=== PATIENT | female | born 1955 | race Hispanic/Latino ===

== ENCOUNTER 2020-09-07 15:04 | Emergency (ER) | payer SELFPAY ==
[2020-09-07] MEDS ORDERED: NA CHLORIDE 0.9% 1,000 ML ONE (15:55)
[2020-09-07] MEDS ORDERED: KETOROLAC 30 MG/ML INJ ONE (15:55)
[2020-09-07] MEDS ORDERED: MORPHINE 4 MG/ML SYR ONE (15:55)
[2020-09-07] MEDS ORDERED: ONDANSETRON 4 MG/2 ML VIAL ONE (15:55)
--- NOTE | 2020-09-07 16:01 | ER ---
Nurse's Notes [facility] Name: Sydney Melendez Age: 65 yrs Sex: Female : 1955 Arrival Date: 09/07/2020 Time: 15:05 Bed 15 Private MD: Diagnosis: Fall due to bumping against object;Nondisplaced transverse fracture of shaft of right radius Presentation: 09/07 15:08 Acuity: NORIS 3 zb 15:08 Chief complaint: EMS states: fall from home. fell on right arm, injury to right wrist zb swollen, VSS. welsh speaking only. Coronavirus screen: At this time, the client does not indicate any symptoms associated with coronavirus-19. Ebola Screen: No symptoms or risks identified at this time. Initial Sepsis Screen: Does the patient meet any 2 criteria? No. Patient's initial sepsis screen is negative. Does the patient have a suspected source of infection? No. Patient's initial sepsis screen is negative. Risk Assessment: Do you want to hurt yourself or someone else? Patient reports no desire to harm self or others. Onset of symptoms was September 07, 2020. 15:08 Method Of Arrival: EMS: [facility] zb Triage Assessment: 15:27 General: Appears in no apparent distress. uncomfortable, Behavior is calm, cooperative, zb tearful . Pain: Complains of pain in right wrist Pain does not radiate. Pain currently is 9 out of 10 on a pain scale. Quality of pain is described as sharp, tender, Pain began suddenly, 1 hour ago. Is continuous, Noted to be grimacing, guarding, Also complains of inability to perform activities of daily living. EENT: Neuro: Level of Consciousness is awake, alert, obeys commands, Oriented to person, place, time, situation. Cardiovascular: Capillary refill < 3 seconds in bilateral fingers Patient's skin is warm and dry. Respiratory: Airway is patent Respiratory effort is even, unlabored, Respiratory pattern is regular, symmetrical. GI: No signs and/or symptoms were reported involving the gastrointestinal system. : No signs and/or symptoms were reported regarding the genitourinary system. Derm: Skin is intact, is healthy with good turgor, Skin is normal. Musculoskeletal: Circulation, motion, and sensation intact. Capillary refill < 3 seconds, in bilateral fingers. Range of motion: intact in all extremities, Swelling present in right wrist Reports pain in right wrist. Historical: - Allergies: 15:27 No Known Allergies; zb - PMHx: 15:27 Diabetes - NIDDM; Thyroid problem; zb - PSHx: 15:27 Hysterectomy; eye surgery; zb - Immunization history:: Adult Immunizations up to date, Flu vaccine is up to date. - Social history:: Smoking status: Patient denies any tobacco usage or history of. - Family history:: not pertinent. Screenin:30 Abuse screen: Denies threats or abuse. Denies injuries from another. Nutritional zb screening: No deficits noted. On. Tuberculosis screening: No symptoms or risk factors identified. Fall Risk Fall in past 12 months (25 points). No secondary diagnosis (0 pts). IV access (20 points). Ambulatory Aid- Crutches/Cane/Walker (15 pts). Gait- Normal/Bed Rest/Wheelchair (0 pts) Mental Status- Oriented to own ability (0 pts). Total Cerna Fall Scale indicates High Risk Score (45 or more points). Fall prevention measures have been instituted. Side Rails Up X 2 Placed Close to Nursing Station Frequent Obs/Assessments Occuring Family Present and informed to notify staff if the need to leave the bedside As available patient and family educated on Fall Prevention Program and Strategies. Assessment: 15:34 Reassessment: See triage assessment. zb 16:15 Reassessment: d/c pending splint and x-ray reviews. zb 17:03 Reassessment: Patient appears in no apparent distress at this time. Patient and/or zb family updated on plan of care and expected duration. Pain level reassessed. Patient is alert, oriented x 3, equal unlabored respirations, skin warm/dry/pink. family at bedside states. patient states the pain has decreased. Patient states feeling better. Patient states symptoms have improved. Vital Signs: 15:06 BP 158 / 68; Pulse 66; Resp 20; Temp 98.4; Pulse Ox 98% ; dh4 15:34 BP 156 / 74; Pulse 67; Resp 18; Pulse Ox 99% on R/A; zb ED Course: 15:05 Patient arrived in ED. zb 15:07 Bin Hayes MD is Attending Physician. [facility] 15:08 Anh Calderon, RN is Primary Nurse. zb 15:08 Triage completed. zb 15:30 Patient has correct armband on for positive identification. Bed in low position. Call zb light in reach. Side rails up X 1. Door closed. Warm blanket given. 15:45 Inserted saline lock: 20 gauge in left antecubital area, using aseptic technique. zb 15:57 Coy Black MD is Referral Physician. [facility] 16:11 Wrist Right 3 View XRAY In Process Unspecified. EDMS 16:34 Arm band placed on. zb 16:42 Orthoglass splint: Sugar tong splint applied on right arm. 4 17:07 IV discontinued, intact, bleeding controlled, No redness/swelling at site. Pressure zb dressing applied. 17:08 No provider procedures requiring assistance completed. zb Administered Medications: 15:56 Drug: NS 0.9% 1000 ml Route: IV; Rate: 1 bolus; Site: left antecubital; zb 16:30 Follow up: Response: No adverse reaction; IV Status: Completed infusion; IV Intake: zb 1000ml 15:57 Drug: TORadol 30 mg Route: IVP; Site: left antecubital; zb 16:18 Follow up: Response: No adverse reaction zb 15:57 Drug: Zofran (Ondansetron) 4 mg Route: IVP; Site: left antecubital; zb 16:18 Follow up: Response: No adverse reaction zb 15:57 Drug: morphine 4 mg Route: IVP; Site: left antecubital; zb 16:18 Follow up: Response: No adverse reaction; Marked relief of symptoms; RASS: Drowsy (-1) zb Intake: 16:30 IV: 1000ml; Total: 1000ml. zb Outcome: 16:01 Discharge ordered by . [facility] 17:08 Discharged to home via wheelchair, with family. zb 17:08 Condition: stable 17:08 Discharge instructions given to patient, family, Instructed on discharge instructions, follow up and referral plans. medication usage, Demonstrated understanding of instructions, follow-up care, medications, Prescriptions given X 2. 17:15 Patient left the ED. zb Signatures: Dispatcher [employer] EDAK Bin Hayes MD MD cha Huhn, Donald 4 Anh Calderon, RN RN zb
--- NOTE | 2020-09-07 16:02 | EDPHYS ---
Physician Documentation [facility] Name: Sydney Melendez Age: 65 yrs Sex: Female : 1955 Arrival Date: 09/07/2020 Time: 15:05 Bed 15 Private MD: ED Physician Bin Hayes HPI: 09/07 15:30 This 65 yrs old Female presents to ER via EMS with complaints of right wrist luisito pain after fall, deformity noted. 15:30 The patient or guardian reports decreased range of motion, pain. The complaints affect luisito the right wrist diffusely. Context: The problem was sustained at home. Onset: The symptoms/episode began/occurred just prior to arrival. Modifying factors: The symptoms are alleviated by elevation, holding still, ice/coldpack to affected area, the symptoms are aggravated by movement, dependent position. Associated signs and symptoms: Pertinent positives:. The patient has not experienced similar symptoms in the past. Historical: - Allergies: 15:27 No Known Allergies; zb - PMHx: 15:27 Diabetes - NIDDM; Thyroid problem; zb - PSHx: 15:27 Hysterectomy; eye surgery; zb - Immunization history:: Adult Immunizations up to date, Flu vaccine is up to date. - Social history:: Smoking status: Patient denies any tobacco usage or history of. - Family history:: not pertinent. ROS: 15:30 Constitutional: Negative for fever, chills, and weight loss, Eyes: Negative for injury, luisito pain, redness, and discharge, ENT: Negative for injury, pain, and discharge, Neck: Negative for injury, pain, and swelling, Cardiovascular: Negative for chest pain, palpitations, and edema, Respiratory: Negative for shortness of breath, cough, wheezing, and pleuritic chest pain, Abdomen/GI: Negative for abdominal pain, nausea, vomiting, diarrhea, and constipation, Back: Negative for injury and pain, : Negative for injury, bleeding, discharge, and swelling, Skin: Negative for injury, rash, and discoloration, Neuro: Negative for headache, weakness, numbness, tingling, and seizure, Psych: Negative for depression, anxiety, suicide ideation, homicidal ideation, and hallucinations, Allergy/Immunology: Negative for hives, rash, and allergies, Endocrine: Negative for neck swelling, polydipsia, polyuria, polyphagia, and marked weight changes, Hematologic/Lymphatic: Negative for swollen nodes, abnormal bleeding, and unusual bruising. 15:30 MS/extremity: Positive for decreased range of motion, pain, swelling, tenderness, of the right wrist. Exam: 15:30 Constitutional: This is a well developed, well nourished patient who is awake, alert, luisito and in no acute distress. Head/Face: Normocephalic, atraumatic. Eyes: Pupils equal round and reactive to light, extra-ocular motions intact. Lids and lashes normal. Conjunctiva and sclera are non-icteric and not injected. Cornea within normal limits. Periorbital areas with no swelling, redness, or edema. ENT: Nares patent. No nasal discharge, no septal abnormalities noted. Tympanic membranes are normal and external auditory canals are clear. Oropharynx with no redness, swelling, or masses, exudates, or evidence of obstruction, uvula midline. Mucous membranes moist. Neck: Trachea midline, no thyromegaly or masses palpated, and no cervical lymphadenopathy. Supple, full range of motion without nuchal rigidity, or vertebral point tenderness. No Meningismus. Chest/axilla: Normal chest wall appearance and motion. Nontender with no deformity. No lesions are appreciated. Cardiovascular: Regular rate and rhythm with a normal S1 and S2. No gallops, murmurs, or rubs. Normal PMI, no JVD. No pulse deficits. Respiratory: Lungs have equal breath sounds bilaterally, clear to auscultation and percussion. No rales, rhonchi or wheezes noted. No increased work of breathing, no retractions or nasal flaring. Abdomen/GI: Soft, non-tender, with normal bowel sounds. No distension or tympany. No guarding or rebound. No evidence of tenderness throughout. Back: No spinal tenderness. No costovertebral tenderness. Full range of motion. Female : Normal external genitalia. Skin: Warm, dry with normal turgor. Normal color with no rashes, no lesions, and no evidence of cellulitis. Neuro: Awake and alert, GCS 15, oriented to person, place, time, and situation. Cranial nerves II-XII grossly intact. Motor strength 5/5 in all extremities. Sensory grossly intact. Cerebellar exam normal. Normal gait. Psych: Awake, alert, with orientation to person, place and time. Behavior, mood, and affect are within normal limits. 15:30 Musculoskeletal/extremity: ROM: limited active range of motion, limited passive range of motion, limited active range of motion due to pain, limited passive range of motion due to pain, Circulation is intact in all extremities. Sensation intact. Compartment Syndrome exam of affected extremity: is normal. Vital Signs: 15:06 BP 158 / 68; Pulse 66; Resp 20; Temp 98.4; Pulse Ox 98% ; dh4 15:34 BP 156 / 74; Pulse 67; Resp 18; Pulse Ox 99% on R/A; zb MDM: 15:07 Patient medically screened. [facility] 15:33 Differential diagnosis: closed fracture, contusion, tendonitis. Data reviewed: vital luisito signs, nurses notes, lab test result(s), radiologic studies, plain films. Data interpreted: information systems technician: rate is 66 beats/min, rhythm is regular, Pulse oximetry: on. Test interpretation: by ED physician or midlevel provider: plain radiologic studies. Counseling: I had a detailed discussion with the patient and/or guardian regarding: the historical points, exam findings, and any diagnostic results supporting the discharge/admit diagnosis, radiology results. 09/07 15:26 Order name: Wrist Right 3 View XRAY [facility] 09/07 15:26 Order name: Ice pack; Complete Time: 15:58 [facility] 09/07 15:56 Order name: Sling; Complete Time: 16:18 [facility] 09/07 15:56 Order name: Sugar Tong Forearm Splint: well padded, not circumfrential; Complete Time: [facility] 16:42 Administered Medications: 15:56 Drug: NS 0.9% 1000 ml Route: IV; Rate: 1 bolus; Site: left antecubital; zb 16:30 Follow up: Response: No adverse reaction; IV Status: Completed infusion; IV Intake: zb 1000ml 15:57 Drug: TORadol 30 mg Route: IVP; Site: left antecubital; zb 16:18 Follow up: Response: No adverse reaction zb 15:57 Drug: Zofran (Ondansetron) 4 mg Route: IVP; Site: left antecubital; zb 16:18 Follow up: Response: No adverse reaction zb 15:57 Drug: morphine 4 mg Route: IVP; Site: left antecubital; zb 16:18 Follow up: Response: No adverse reaction; Marked relief of symptoms; RASS: Drowsy (-1) zb Disposition: 09/07/20 16:01 Discharged to Home. Impression: Fall due to bumping against object, Nondisplaced transverse fracture of shaft of right radius. - Condition is Stable. - Discharge Instructions: Wrist Fracture Treated With Immobilization, Wrist Fracture Treated With Immobilization, [id number]. - Prescriptions for Tylenol- Codeine #3 300-30 mg Oral Tablet - take 2 tablets by ORAL route every 6 hours As needed; 26 tablet. Motrin IB 200 mg Oral Tablet - take 2 tablet by ORAL route every 6 hours As needed as needed with food; 30 tablet. - Medication Reconciliation Form, Thank You Letter, Antibiotic Education, Prescription Opioid Use form. - Follow up: Coy Black MD; When: 2 - 3 days; Reason: Recheck today's complaints, Re-evaluation by your physician. - Problem is new. - Symptoms have improved. Signatures: Dispatcher [employer] EDWV Bin Hayes MD MD cha Brown, Zipporah RN RN zb Corrections: (The following items were deleted from the chart) 17:15 16:01 09/07/2020 16:01 Discharged to Home. Impression: Fall due to bumping against zb object; Nondisplaced transverse fracture of shaft of right radius. Condition is Stable. Forms are Medication Reconciliation Form, Thank You Letter, Antibiotic Education, Prescription Opioid Use. Follow up: Coy Black; When: 2 - 3 days; Reason: Recheck today's complaints, Re-evaluation by your physician. Problem is new. Symptoms have improved. luisito
--- NOTE | 2020-09-07 16:17 | RAD REPORT ---
EXAM DESCRIPTION: RAD - Wrist Right 3 View - 09/07/2020 4:11 pm CLINICAL HISTORY: Right wrist pain status post injury FINDINGS: Minimally displaced fracture distal radial metaphysis. No dislocation
[2020-09-07 18:14] VITALS: TEMP 98.4
[2020-09-07 18:16] VITALS: BP 156/74; O2SAT 99
== END 2020-09-07 17:15 | disposition home or self-care (01) ==
LOC: ER 15:04
PROC: 2W3CX1Z Immobilization of Right Lower Arm using Splint (ICD-10-PCS; principal; 2020-09-07)
DX: S52.324A Nondisplaced transverse fracture of shaft of right radius, initial encounter for closed fracture (principal); W18.00XA Striking against unspecified object with subsequent fall, initial encounter; Y93.9 Activity, unspecified; Y92.009 Unspecified place in unspecified non-institutional (private) residence as the place of occurrence of the external cause
CPT/HCPCS: 96361; 96374; 96375; 99284; J2405; J7030